=== PATIENT | male | born 1985 | race Caucasian/White ===

== ENCOUNTER 2017-06-13 15:45 | Emergency (ER) | payer SELFPAY ==
[2017-06-13 15:53] VITALS: BP 148/88
--- NOTE | 2017-06-13 17:09 | UC ---
Nash Craft Thomas, scribed for Radha Faustin MD on 06/13/17 at 1641 . Throat Pain/Nasal Jayden HPI - HPI Summary HPI Summary: The patient is a 31 y/o M presenting [place] [facility] [place]/o a sore throat that began 2-3 days ago. The pain worsened today, prompting a visit. The patient rates the pain 8/10 with a burning sensation. The pain is worsened with eating, drinking. Pt with enlarged lymph nodes. The pt is otherwise able to drink. Pt additionally complains of myalgia, sinus congestion, postnasal drip, dysphagia, and bilateral ear pain. No analgesia taken. Pt denies nausea, diarrhea. 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 He does not take any daily medications. PMHx: previously healthy. PSHx: inguinal hernia repair (2016) SHx: no smoking, weekend drinking, no drugs. Pt is a massage student. FHx: negative for HTN and DM. Patients medications are reviewed this visit. - History of Current Complaint Chief Complaint: UCGeneralIllness Stated Complaint: SORE THROAT Hx Obtained From: Patient Onset/Duration: Lasting Days - 2 days, Still Present, Worse Since - yesterday Pain Intensity: 8 Pain Scale Used: 0-10 Numeric Associated Signs & Symptoms: Positive: Dysphagia, Sinus Discomfort, Nasal Discharge, Other - POS: myalgia, bilateral ear pain. NEG: nausea, diarrhea, cervical lymphadenopathy, inability to eat. Negative: Rash - Allergies/Home Medications Allergies/Adverse Reactions: Allergies Allergy/AdvReac Type Severity Reaction Status Date / Time No Known Allergies Allergy Verified 06/13/17 15:50 PMH/Surg Hx/FS Hx/Imm Hx Previously Healthy: Yes - Surgical History Surgical History: Yes Surgery Procedure, Year, and Place: inguinal hernia repair 2016 - Family History Known Family History: Negative: Hypertension, Diabetes - Social History Occupation: Student Lives: Alone Alcohol Use: Occasionally - weekend Substance Use Type: None Smoking Status (MU): Never Smoked Tobacco Review of Systems Constitutional: Negative Skin: Negative Eyes: Negative ENT: Sore Throat, Ear Ache - bilateral, Other - painful swallowing Respiratory: Negative Cardiovascular: Negative Gastrointestinal: Negative Genitourinary: Negative Motor: Negative Neurovascular: Negative Musculoskeletal: Negative Neurological: Negative Psychological: Negative All Other Systems Reviewed And Are Negative: Yes Physical Exam Triage Information Reviewed: Yes Appearance: Well-Appearing, No Pain Distress, Well-Nourished Vital Signs: Initial Vital Signs Temp 98 F 06/13/17 15:51 Pulse 94 06/13/17 15:51 Resp 18 06/13/17 15:51 BP 148/88 06/13/17 15:51 Pulse Ox 100 06/13/17 15:51 Vital Signs Reviewed: Yes Eye Exam: Normal Eyes: Positive: Conjunctiva Clear, Discharge ENT Exam: Normal ENT: Positive: Normal ENT inspection, Hearing grossly normal, Pharynx normal, Pharyngeal erythema, Nasal drainage, TMs normal, Tonsillar swelling, Tonsillar exudate - TM x 2 clear turbinates inflammed + diffuse erythema oropharynx + exudate b/l Neck exam: Normal Neck: Positive: Supple, Nontender. Negative: No Lymphadenopathy - submandibular LE Respiratory Exam: Normal Respiratory: Positive: Chest non-tender, Lungs clear, Normal breath sounds, No respiratory distress, No accessory muscle use Cardiovascular: Positive: RRR, No Murmur, Pulses Normal Abdomen Description: Positive: Nontender, No Organomegaly, Soft Bowel Sounds: Positive: Present Musculoskeletal Exam: Normal Neurological Exam: Normal Neurological: Positive: Alert Psychological Exam: Normal Psychological: Positive: Normal Response To Family Skin Exam: Normal Throat Pain/Nasal Course/Dx - Course Assessment/Plan: PT present with progressive sore throat x 3 days. Pt with extensive exudate, erythema, reported temp and cerival LA. Will start Amox. secretion precaution. hydrate. gargle/spit. return precautions - Differential Dx/Diagnosis Provider Diagnoses: exudative pharyngitis Discharge - Discharge Plan Condition: Stable Disposition: HOME Prescriptions: Amoxicillin PO (*) [Amoxicillin 875 MG (*)] 875 mg PO BID #20 tab Patient Education Materials: Pharyngitis (ED) Referrals: No Primary Care Phys,NOPCP [Primary Care Provider] - Additional Instructions: - Stay well hydrated. Drink plenty of non-alcoholic, non-caffinated beverages. - take antibiotics as prescribed until gone - Gargle with warm, salt water 2-3 times a day - Cold beverages may be soothing to your throat - popsicles, apple sauce, jello - After you have been on antibiotics for 2 days - change your toothbrush and your pillowcase. These infections are spread by secretions - do NOT share eating or drinking utensils - clean items you share with other people such as cell phones, computer mouse, TV remote, computer tablets, etc - Alternate ibuprofen (Advil, Motrin) 600mg and Tylenol every 3 hours for pain or fever. Take with food. Do NOT take for more than 4-5 days. - Contact your doctor or return with questions or concerns The documentation as recorded by the Nash mendosa Thomas accurately reflects the service I personally performed and the decisions made by me, Radha Faustin MD.
== END 2017-06-13 17:00 | disposition home or self-care (01) ==
LOC: UCEAST 15:45
DX: J02.9 Acute pharyngitis, unspecified (principal)
CPT/HCPCS: 99202; G0463